=== PATIENT | male | born 1985 | race Caucasian/White ===

== ENCOUNTER 2021-12-27 09:22 | Emergency (ER) | payer OTHER ==
[2021-12-27 09:32] VITALS: BP 120/77; PULSE 91; TEMP 97.9; BMI 26.6
[2021-12-27] MEDS ORDERED: KETOROLAC TROMETHAMINE 30 MG/1 ML VIAL IVPB ONE (10:09)
[2021-12-27] MEDS ORDERED: SODIUM CHLORIDE 0.9% 500 ML INFUS.BAG IV ONE (10:09)
[2021-12-27] MEDS ORDERED: KETOROLAC TROMETHAMINE 30 MG/1 ML VIAL ONE (10:26)
[2021-12-27 10:48] LABS: BASO % 0.4 % (0-2.0); EOS % 0.5 % (0-4.5); HEMATOCRIT 42.5 % (35.4-49); LYMPH % 12.9 % (8-40); MCH 29.9 pg (25.7-33.7); MCHC 35.3 g/dl (32.0-35.9); MEAN CELL VOLUME 84.9 fl (80-96); MEAN PLT VOLUME 8.2 fl (7.5-11.1); MONO % 6.5 % (3.8-10.2); NEUT % 79.7 % (42.8-82.8); PLATELET COUNT 209 10^3/uL (134-434); RBC 5.01 M/mm3 (4.00-5.60); RDW 12.9 % (11.9-15.9)
[2021-12-27 11:06] LABS: ALBUMIN 4.9 g/dl (3.4-5.0); BLOOD UREA NITROGEN 16.8 mg/dL (7-18)
[2021-12-27 11:09] LABS: CREATININE 0.9 mg/dL (0.55-1.3)
[2021-12-27 11:10] LABS: BILIRUBIN,TOTAL 1.2 mg/dL (0.2-1)
[2021-12-27 11:11] LABS: TOT PROT 7.7 g/dl (6.4-8.2)
[2021-12-27 13:21] LABS: PH,URINE 5.5 (5.0-8.0); URINE APPEARANCE CLEAR; URINE BILIRUBIN NEGATIVE (NEGATIVE); URINE COLOR YELLOW; URINE GLUCOSE (UA) NEGATIVE (NEGATIVE); URINE KETONE NEGATIVE (NEGATIVE); URINE LEUK ESTERASE NEGATIVE (NEGATIVE); URINE NITRITE NEGATIVE (NEGATIVE); URINE PROTEIN NEGATIVE (NEGATIVE); URINE UROBILINOGEN 0.2 mg/dL (0.2-1.0)
== END 2021-12-27 14:17 | disposition home or self-care (01) ==
LOC: JER 09:22
PROC: 3E0333Z Introduction of Anti-inflammatory into Peripheral Vein, Percutaneous Approach (ICD-10-PCS; principal; 2021-12-27)
DX: R07.9 Chest pain, unspecified (principal); R53.1 Weakness
CPT/HCPCS: 36415; 71046-TC-FY; 80053; 81003; 84484; 85025; 87086; 93005; 93010; 99285-25